=== PATIENT | male | born 1985 | race Caucasian/White ===

== ENCOUNTER 2018-10-24 18:08 | Emergency (ER) | payer OTHER ==
[2018-10-24] MEDS ORDERED: ONDANSETRON 4 MG/2 ML VIAL IVP STA (18:25)
[2018-10-24] MEDS ORDERED: KETOROLAC 30 MG/ML 1 ML VIAL IVP STA (18:25)
[2018-10-24 18:41] LABS: Basophils % (A) 0 %; Eosinophils # (A) 0.2 k/uL (0-0.7); Eosinophils % (A) 1 %; HCT 40.8 % (39.0-53.0); Lymphocytes # (A) 1.5 k/uL (1.0-4.8); Lymphocytes % (A) 13 %; MCH 30.3 pg (25.0-35.0); MCHC 34.2 g/dL (31.0-37.0); MCV 88.5 fL (80.0-100.0); Mean Platelet Volume 8.4; Monocytes # (A) 0.5 k/uL (0-1.0); Monocytes % (A) 4 %; Neutrophils % (A) 81 %; Platelet Count 239 k/uL (150-450); RBC 4.61 m/uL (4.30-5.90); RDW 13.7 % (11.5-15.5); WBC 12.3 k/uL (3.8-10.6)
[2018-10-24 18:52] LABS: ALT 36 U/L (21-72); AST 29 U/L (17-59); African American GFR (CKD) >90 (>60 ml/min/1.73 sqM); Albumin 4.9 g/dL (3.5-5.0); Alkaline Phosphatase 83 U/L (38-126); Amylase 82 U/L (30-110); Anion Gap 11 mmol/L; Blood Urea Nitrogen 22 mg/dL (9-20); Calcium 10.1 mg/dL (8.4-10.2); Carbon Dioxide 23 mmol/L (22-30); Chloride 106 mmol/L (98-107); Glucose 101 mg/dL (74-99); Potassium 4.5 mmol/L (3.5-5.1); Sodium 140 mmol/L (137-145); Total Bilirubin 0.8 mg/dL (0.2-1.3); Total Protein 8.2 g/dL (6.3-8.2)
[2018-10-24 19:27] LABS: Appearance,Urine Clear (Clear); Bilirubin,Urine Negative (Negative); Blood,Urine Negative (Negative); Color,Urine Light Yellow; Glucose,Urine (UA) Negative (Negative); Ketones,Urine Negative (Negative); Leukocyte Esterase,Urine Negative (Negative); Nitrite,Urine Negative (Negative); PH, Urine 8.5 (5.0-8.0); Protein,Urine Negative (Negative); Specific Gravity,Urine 1.019 (1.001-1.035); Urobilinogen,Urine <2.0 mg/dL (<2.0)
--- NOTE | 2018-10-24 19:27 | CT ---
EXAMINATION TYPE: CT abdomen pelvis w con DATE OF EXAM: 10/24/2018 COMPARISON: NONE HISTORY: 33-year-old male with new onset left flank pain. Known left side 2 mm renal calculi found 1 week ago. TECHNIQUE: Contiguous axial scanning of the abdomen and pelvis following administration of 100 ml Iso luke 300 IV contrast. Delayed images through the kidneys and coronal/sagittal reconstructions perform ed. CT DLP: 1400.2 mGycm Automated exposure control for dose reduction was used. FINDINGS: Heart normal size without pericardial effusion. Lung bases clear without pleural effusion. Tiny hiatal hernia. Liver mildly enlarged at 18.4 cm. No focal lesion is seen. No biliary ductal dilatation. Portal venou s system is patent. Gallbladder, adrenal glands, right kidney, spleen with hilar splenule, and pancreas appear within nor mal limits. There is mild hydronephrosis on the left with perinephric stranding, delayed excretion from the left kidney, and a 2 mm calculus at the left UVJ. No dilated small bowel, free fluid, or free air. No mesenteric or retroperitoneal lymphadenopathy. No rmal appendix. Scattered mild stool. No pericolonic inflammatory change. Bladder is urine distended. No abnormal fluid collection in the pelvis or pelvic lymphadenopathy seen . Bones: Degenerative changes of the left hip. Bilateral L5 pars defects with grade 1 anterolisthesis a t L5-S1. Bulging disc at L3-L4 and L4-L5. IMPRESSION: 1. A 2 MM CALCULUS AT THE LEFT UVJ WITH MILD OBSTRUCTIVE UROPATHY. 2. TINY HIATAL HERNIA. 3. MILD HEPATOMEGALY (18.4 CM). 4. BILATERAL L5 PARS DEFECTS WITH GRADE 1 ANTEROLISTHESIS AT L5-S1.
--- NOTE | 2018-10-24 20:06 | XR ---
EXAMINATION TYPE: XR KUB DATE OF EXAM: 10/24/2018 CLINICAL DATA: 33-year-old male with left lower abdominal pain, [facility] COMPARISON: Correlation CT earlier today FINDINGS: Excreted contrast is seen within the bilateral renal collecting systems, ureters, and beginning to fi ll bladder. Scattered mild stool burden. No dilated small bowel or air-fluid levels are identified. N o evidence for free intraperitoneal air. IMPRESSION: Contrast is seen excreting from both kidneys. The left renal collecting system is asymmetrically dist ended. This could either be secondary to mild hydronephrosis from persistent obstruction versus incre ased renal clearance if the obstruction has now resolved. No evidence of bowel obstruction or free in traperitoneal air.
--- NOTE | 2018-10-24 20:25 | ED ---
General Adult HPI - General Chief complaint: Abdominal Pain Stated complaint: Poss kidney stones Time Seen by Provider: 10/24/18 18:15 Source: patient, RN notes reviewed Mode of arrival: ambulatory Limitations: no limitations - History of Present Illness Initial comments: Magdaleno is a 33-year-old male without any significant past medical history presenting for left lower quadrant pain times 9 hours. Patient states about 2 weeks ago he was seen at [facility] emergency department and was diagnosed with a kidney stone. Patient states that for the past week he has not had any pain. However today he has had 9 hours of left lower quadrant pain. States that this radiates to the left testicle. States that he does have nausea and vomiting as well the past few hours. Denies fevers or chills. Denies any upper abdominal pain. States he has been having normal bowel movements.Patient has no other complaints at this time including shortness of breath, chest pain, nausea or vomiting, headache, or visual changes. - Related Data Previous Rx's Medication Instructions Recorded Ibuprofen [Motrin] 600 mg PO Q8HR PRN #20 tab 10/24/18 Ondansetron [Zofran ODT] 4 mg PO Q8HR PRN #15 tab 10/24/18 Tamsulosin [Flomax] 0.4 mg PO DAILY #10 cap 10/24/18 Allergies Allergy/AdvReac Type Severity Reaction Status Date / Time No Known Allergies Allergy Verified 10/24/18 18:12 Review of Systems ROS Statement: Those systems with pertinent positive or pertinent negative responses have been documented in the HPI. ROS Other: All systems not noted in ROS Statement are negative. Past Medical History Past Medical History: No Reported History History of Any Multi-Drug Resistant Organisms: None Reported Past Surgical History: No Surgical Hx Reported Past Psychological History: No Psychological Hx Reported Smoking Status: Never smoker Past Alcohol Use History: None Reported Past Drug Use History: None Reported General Exam Limitations: no limitations General appearance: alert, in no apparent distress Head exam: Present: atraumatic, normocephalic, normal inspection Eye exam: Present: normal appearance, PERRL, EOMI. Absent: scleral icterus, conjunctival injection, periorbital swelling ENT exam: Present: normal exam, mucous membranes moist Neck exam: Present: normal inspection, full ROM. Absent: tenderness, meningismus, lymphadenopathy Respiratory exam: Present: normal lung sounds bilaterally. Absent: respiratory distress, wheezes, rales, rhonchi, stridor Cardiovascular Exam: Present: regular rate, normal rhythm, normal heart sounds. Absent: systolic murmur, diastolic murmur, rubs, gallop, clicks GI/Abdominal exam: Present: soft, tenderness (Left lower quadrant tenderness with guarding. No right lower quadrant tenderness or upper abdominal tenderness.), normal bowel sounds. Absent: distended, guarding, rebound, rigid Back exam: Absent: CVA tenderness (R), CVA tenderness (L) Neurological exam: Present: alert, oriented X3 Psychiatric exam: Present: normal affect, normal mood Course Vital Signs 10/24/18 18:09 Temperature 97.5 F L Pulse Rate 76 Respiratory 22 Rate Blood Pressure 147/89 O2 Sat by Pulse 100 Oximetry Medical Decision Making - Medical Decision Making 9-year-old male presents to the emergency department for a chief complaint of l eft lower quadrant pain. This has been ongoing for the past 9 hours. Patient had similar pain over a week ago and was diagnosed a kidney stone. I did attempt to get these records for several hours from [facility] but was ultimately unsuccessful. Vital signs are stable, patient is afebrile. On examination patient has left lower quadrant tenderness with guarding. No other abdominal tenderness. Patient does have a white blood cell count of 12.3 which is likely reactive. CMP is unremarkable. Patient given fluids. Given tenderness with guarding and being unable to obtain previous CAT scan CT of the abdomen and pelvis was ordered with contrast to rule out concern for diverticulitis. CT abdomen and pelvis showed a 2 mm calculus at the left UVJ with mild obstructive uropathy. Is likely the cause of patient's pain. XR KUB ordered for urology. CT also showed that the bladder is urine distended. Patient states that he urinated afterwards and had a full bladder during the computed tomography scan. Post void bladder scan was performed which was less than 10. Patient also has incidental findings of a tiny hiatal hernia, mild hepatomegaly, and pars defect. No recent trauma. These were discussed with patient and he will follow-up with his primary care provider for this. Odalis ent's pain is controlled at this time with Toradol. Patient will be given Zofran. Patient already has [place] at home from his primary care provider for this. She'll also be given Flomax and a urology follow-up. - Lab Data Result diagrams: 10/24/18 18:28 10/24/18 18:28 Lab Results 10/24/18 10/24/18 10/24/18 Range/Units 18:24 18:28 18:28 WBC 12.3 H (3.8-10.6) k/uL RBC 4.61 (4.30-5.90) m/uL Hgb 14.0 (13.0-17.5) gm/dL Hct 40.8 (39.0-53.0) % MCV 88.5 (80.0-100.0) fL MCH 30.3 (25.0-35.0) pg MCHC 34.2 (31.0-37.0) g/dL RDW 13.7 (11.5-15.5) % Plt Count 239 (150-450) k/uL Neutrophils % 81 % Lymphocytes % 13 % Monocytes % 4 % Eosinophils % 1 % Basophils % 0 % Neutrophils # 10.0 H (1.3-7.7) k/uL Lymphocytes # 1.5 (1.0-4.8) k/uL Monocytes # 0.5 (0-1.0) k/uL Eosinophils # 0.2 (0-0.7) k/uL Basophils # 0.0 (0-0.2) k/uL Sodium 140 (137-145) mmol/L Potassium 4.5 (3.5-5.1) mmol/L Chloride 106 (98-107) mmol/L Carbon Dioxide 23 (22-30) mmol/L Anion Gap 11 mmol/L BUN 22 H (9-20) mg/dL Creatinine 1.20 (0.66-1.25) mg/dL Est GFR (CKD-EPI)AfAm >90 (>60 ml/min/1.73 sqM) Est GFR (CKD-EPI)NonAf 80 (>60 ml/min/1.73 sqM) Glucose 101 H (74-99) mg/dL Plasma Lactic Acid Satya (0.7-2.0) mmol/L Calcium 10.1 (8.4-10.2) mg/dL Total Bilirubin 0.8 (0.2-1.3) mg/dL AST 29 (17-59) U/L ALT 36 (21-72) U/L Alkaline Phosphatase 83 (38-126) U/L Total Protein 8.2 (6.3-8.2) g/dL Albumin 4.9 (3.5-5.0) g/dL Amylase 82 (30-110) U/L Lipase 111 (23-300) U/L Urine Color Light Yellow Urine Appearance Clear (Clear) Urine pH 8.5 H (5.0-8.0) Ur Specific [place] 1.019 (1.001-1.035) Urine Protein Negative (Negative) Urine Glucose (UA) Negative (Negative) Urine Ketones Negative (Negative) Urine Blood Negative (Negative) Urine Nitrite Negative (Negative) Urine Bilirubin Negative (Negative) Urine Urobilinogen <2.0 (<2.0) mg/dL Ur Leukocyte Esterase Negative (Negative) 10/24/18 Range/Units 18:28 WBC (3.8-10.6) k/uL RBC (4.30-5.90) m/uL Hgb (13.0-17.5) gm/dL Hct (39.0-53.0) % MCV (80.0-100.0) fL MCH (25.0-35.0) pg MCHC (31.0-37.0) g/dL RDW (11.5-15.5) % Plt Count (150-450) k/uL Neutrophils % % Lymphocytes % % Monocytes % % Eosinophils % % Basophils % % Neutrophils # (1.3-7.7) k/uL Lymphocytes # (1.0-4.8) k/uL Monocytes # (0-1.0) k/uL Eosinophils # (0-0.7) k/uL Basophils # (0-0.2) k/uL Sodium (137-145) mmol/L Potassium (3.5-5.1) mmol/L Chloride (98-107) mmol/L Carbon Dioxide (22-30) mmol/L Anion Gap mmol/L BUN (9-20) mg/dL Creatinine (0.66-1.25) mg/dL Est GFR (CKD-EPI)AfAm (>60 ml/min/1.73 sqM) Est GFR (CKD-EPI)NonAf (>60 ml/min/1.73 sqM) Glucose (74-99) mg/dL Plasma Lactic Acid Satya 2.0 (0.7-2.0) mmol/L Calcium (8.4-10.2) mg/dL Total Bilirubin (0.2-1.3) mg/dL AST (17-59) U/L ALT (21-72) U/L Alkaline Phosphatase (38-126) U/L Total Protein (6.3-8.2) g/dL Albumin (3.5-5.0) g/dL Amylase (30-110) U/L Lipase (23-300) U/L Urine Color Urine Appearance (Clear) Urine pH (5.0-8.0) Ur Specific [place] (1.001-1.035) Urine Protein (Negative) Urine Glucose (UA) (Negative) Urine Ketones (Negative) Urine Blood (Negative) Urine Nitrite (Negative) Urine Bilirubin (Negative) Urine Urobilinogen (<2.0) mg/dL Ur Leukocyte Esterase (Negative) Disposition Clinical Impression: Ureterolithiasis Disposition: HOME SELF-CARE Condition: Good Instructions (If sedation given, give patient instructions): Kidney Stones (ED) Additional Instructions: Please follow up with primary care in 1-[address] findings. Please follow up with urology in 1-2 days. Take Medications as directed. Please return to the emergency department if you have any worsening symptoms. Prescriptions: Tamsulosin [Flomax] 0.4 mg PO DAILY #10 cap Ibuprofen [Motrin] 600 mg PO Q8HR PRN #20 tab PRN Reason: Pain Ondansetron [Zofran ODT] 4 mg PO Q8HR PRN #15 tab PRN Reason: Nausea Is patient prescribed a controlled substance at d/c from ED?: No Referrals: Ananth Paiz DO [Primary Care Provider] - 1-2 days Grabiel Recinos MD [STAFF PHYSICIAN] - 1-2 days Time of Disposition: 20:29
[2018-10-24 20:58] VITALS: BP 138/86; PULSE 68; RESP 18; TEMP 97.7
== END 2018-10-24 20:57 | disposition home or self-care (01) ==
LOC: EC 18:08
DX: N20.1 Calculus of ureter (principal)
CPT/HCPCS: 51798; 36415; 80053; 82150; 83605; 83690; 85025; 81003; 74018; 74177; 99284; 96374; 96375; J2405; J1885; Q9967